=== PATIENT | female | born 2000 | race Caucasian/White ===

== ENCOUNTER 2024-06-30 10:04 | Emergency (ER) | payer OTHER, SELFPAY ==
[2024-06-30 10:15] VITALS: BP 129/95
--- NOTE | 2024-06-30 11:36 | ED.GENMED ---
History of Present Illness
General
Chief Complaint: Vomiting Blood
Source: patient
Time Seen by Provider: 06/30/24 11:14
History of Present Illness
History of Present Illness:
23-year-old female presents to the emergency room complaining of nausea vomiting, epigastric pain, heartburn. When patient vomits she ultimately begins passing up some small streaks of blood. Patient has been experiencing similar symptoms
intermittently for about a year. She has been evaluated by gastroenterology through [facility]. She has had an endoscopy which showed mild gastritis but no specific lesion. Patient states that she had some blood work that showed an
elevated lipase and she is scheduled for an MRI to further evaluate that. She has been taking Zofran at home without improvement. Patient endorses occasional alcohol use as well as regular marijuana use though she has cut back on the amount of
marijuana that she uses. Patient thought the nausea vomiting was related to duloxetine but has stopped and the symptoms continued.
Phy Exam
Physical Exam
Physical Exam:
General: Awake, Alert, Oriented X3. No acute distress.
Vitals: unremarkable
Head: Atraumatic
Eyes: Pupils equal, EOMI
Throat: Airway intact, no exudates
Neck: Trachea midline
Lungs: Clear and equal b/l
Heart: Regular rate, no murmurs
Abd: Soft, no significant reproducible tenderness to palpation, No pulsatile mass
Rectal:
Neuro: Nonfocal
Skin: Warm, dry, no rash
Extremities: pulses equal b/l, no edema
Course
Orders/Labs/Results
Orders:
Orders
06/30/24 11:34
0.9% Sodium Chloride 1000 ml [Nss] 1,000 ml IV BOLUS
Diphenhydramine [Benadryl] 25 mg IV NOW STA
Pantoprazole [Protonix IV] 40 mg IV NOW STA
Prochlorperazine [Compazine] 10 mg IV NOW STA
06/30/24 11:35
Test Result ONCE
06/30/24 11:36
Electrocardiogram (*1) Urgent
Reason for Study: QTc Monitoring
EKG- Treatment ONCE
06/30/24 12:10
Prochlorperazine [Compazine] 10 mg .ROUTE .STK-MED ONE
06/30/24 12:31
Complete Blood Count/With Diff Urgent
Comprehensive Metabolic Panel Urgent
HCG, Urine Qualitative Screen Urgent
Date Specimen was Collected: 06/30/24
Time Specimen was Collected: 12:07
Lipase Urgent
Urinalysis Reflex To Culture Urgent
Date Specimen was Collected: 06/30/24
Time Specimen was Collected: 12:07
Urine Microscopic Reflex Cult Urgent
Abnormal Lab Results
06/30/24
12:31
MCH 31.9 H pg
(27.0-31.0)
Chloride 108 H mmol/L
(98-107)
Ur Occult Blood Reflex 1+ A
(Negative)
Urine Bacteria (Reflex) Few A
(Negative)
Urine Albumin (Reflex) 1+ A
(Neg - Trace)
06/30/24 12:31
06/30/24 12:31
Vital Signs
Initial and Last Documented VS:
Initial Vital Signs
Temp Pulse Resp BP Pulse Ox
98.4 F 105 18 129/95 100
06/30/24 10:15 06/30/24 10:15 06/30/24 10:15 06/30/24 10:15 06/30/24 10:15
Last Documented Vital Signs
Temp Pulse Resp BP Pulse Ox
98.4 F 66 15 97/66 98
06/30/24 10:15 06/30/24 14:49 06/30/24 14:49 06/30/24 14:49 06/30/24 14:49
MDM/Problems Addressed
Differential Diagnosis Includes:
Gastritis, gastroparesis, cannabis hyperemesis
MDM/Problems Addressed:
Patient presents with nausea vomiting epigastric pain. Labs are unremarkable. Patient feels better with treatment of IV fluids, Compazine and Benadryl. She is already in the process of an outpatient workup. Given a benign abdominal exam and
normal labs I do not think a CAT scan here is currently helpful as she has had CAT scans previously and has an MRI scheduled as an outpatient.
*Pulse Oximetry
Patient hypoxic: no
*EKG
Interpretation: normal
Heart Rate: 60
Rate: normal
Rhythm: sinus
[place]: normal axis
Interval: normal interval
QRS Pattern: normal QRS
Ischemia: no ischemia
*Driller Hand Interpretation
Rate: normal
Interpretation: normal
Rhythm: sinus
*Critical Care Note
Total Time (30-74mins, 75-104mins- exclusive of procedures): Not Applicable
ED Attending Note
-
Portions of this chart may have been created with voice recognition software.� Occasional wrong word or��sound alike� substitutions may have occurred due to the inherent limitations of voice recognition software.
Discharge Plan
Departure
Patient Disposition: Home (Routine Discharge)
Date of Disposition: 06/30/24
Time of Disposition: 15:09
Patient with high blood pressure during this ER visit?: No
Condition: Good
Discharge Problem:
Nausea and vomiting, Abdominal pain
Instructions: Nausea and Vomiting, Adult (DC), Abdominal Pain
Prescriptions:
New
prochlorperazine maleate [Compazine] 10 mg tablet
10 mg PO Q8H PRN (Reason: nausea and vomiting) Qty: 20 0RF
Referrals:
Kiko Quach CRNP [Family Provider] -
Activity Restrictions/Additional Instructions:
Follow up for outpatient imaging as scheduled. Return if symptoms are not improving with medication.
Interventions
Interventions:
*Risk Screen - Suicide Last Done: 06/30/24 10:15
*General Assessment Last Done: 06/30/24 10:15
*Neglect/Abuse Screening Last Done: 06/30/24 10:15
*ED- Fall Risk Assessment Last Done: 06/30/24 10:15
*ED COVID-19 Vaccine History Last Done: 06/30/24 10:15
*Nursing Disposition Last Done: 06/30/24 15:18
BQ-Pjvprt-Autxqezstb Assessment Last Done: 06/30/24 12:30
ED- Cardiac Assessment Last Done: 06/30/24 12:30
ED- Pulmonary Assessment Last Done: 06/30/24 12:30
Discharge Date and Time
Discharge Date/Time: 06/30/24 15:19
Print Language: NIGERIEN
[2024-06-30] MEDS: NSS 1000 IV (12:23)
[2024-06-30] MEDS: COMPAZINE 10 MG IV (12:24)
[2024-06-30] MEDS: BENADRYL 25 MG IV (12:24)
[2024-06-30] MEDS: PROTONIX IV 40 MG IV (12:24)
[2024-06-30 12:36] VITALS: BMI 21.2
[2024-06-30 12:37] VITALS: BP 104/61
[2024-06-30 12:42] LABS: % Basophils 0.5 % (0-2); % Eosinophils 2.9 % (0-6); % Immature Granulocytes 0.3 % (0-0.5); % Lymphocytes 22.8 % (20.5-51.1); % Neutrophils 65.5 % (42.2-75.2); Absolute Eosinophils 0.2 10^3/uL (0-0.7); Absolute Lymphocytes 1.3 10^3/uL (1.2-3.4); Absolute Monocytes 0.5 10^3/uL (0.1-0.6); Absolute Neutrophils 3.9 10^3/uL (1.4-6.5); Hematocrit 41.3 % (37.0-47.0); Hemoglobin 14.3 g/dL (12.0-16.0); Mean Corp Hgb Conc. 34.6 g/dL (33.0-37.0); Mean Corpuscular Hgb 31.9 pg (27.0-31.0); Mean Corpuscular Volume 92.2 fL (81.0-99.0); Mean Platelet Volume 10.2 fL (7.4-10.4); Nucleated Red Blood Cells % 0 %; Platelet Count 169 10^3/uL (130-400); Red Blood Cell Count 4.48 10^6/uL (4.20-5.40); Red Cell Dist. Width 12.3 % (11.5-14.5); White Blood Cell Count 5.9 10^3/uL (4.8-10.8)
[2024-06-30 13:01] LABS: Urine Albumin 1+ (Neg - Trace); Urine Bilirubin Negative (Negative); Urine Character Clear (Clear); Urine Color Yellow; Urine Glucose Negative (Negative); Urine Ketone Negative (Negative); Urine Leukocyte Negative (Negative); Urine Nitrite Negative (Negative); Urine Occult Blood 1+ (Negative); Urine Urobilinogen Negative (Neg - 1+)
[2024-06-30 13:03] LABS: ALT (SGPT) 14 U/L (0-35); AST (SGOT) 18 U/L (14-36); Albumin 4.2 g/dl (3.5-5.0); Alkaline Phosphatase 44 U/L (38-126); Blood Urea Nitrogen 8 mg/dl (7-17); Calcium 9.4 mg/dl (8.4-10.2); Carbon Dioxide 27 mmol/L (22-30); Chloride 108 mmol/L (98-107); Estimated Creatinine Clearance 123 ml/min; Glucose 97 mg/dl (70-99); Lipase 85 U/L (23-300); Potassium 4.3 mmol/L (3.5-5.1); Sodium 140 mmol/L (135-145); Total Bilirubin 0.6 mg/dl (0.2-1.3); eGFR > 60.00
[2024-06-30 13:44] LABS: Urine Bacteria Few (Negative); Urine Red Blood Cell 0-2 /HPF (0-2); Urine White Cell 0-2 /HPF (0-5)
[2024-06-30 13:45] LABS: HCG, Urine Qualitative Screen Negative
[2024-06-30 14:49] VITALS: BP 97/66
== END 2024-06-30 15:19 | disposition home or self-care (01) ==
LOC: EMR 10:04
PROVIDERS: EMERGENCY PHYSICIAN Emergency Medicine; FAMILY PHYSICIAN Nurse Practitioner Family
DX: R11.2 Nausea with vomiting, unspecified (principal); R10.9 Unspecified abdominal pain; Z87.19 Personal history of other diseases of the digestive system
CPT/HCPCS: 99283; 96374; 96375; 96361; 80053; 81003; 81015; 81025; 83690; 85025; 93005